=== PATIENT | male | born 1965 | race Two or more races ===

== ENCOUNTER 2020-11-24 09:05 | Inpatient (IN) | payer MEDICAID, OTHER ==
[~2020-11-24] VITALS: Ht 170.2 cm; Wt 86.8 kg
[2020-11-24] MEDS ORDERED: HYDROcodone-ACET 5/325MG TAB PO ONE (12:15)
[2020-11-24] MEDS ORDERED: cefTRIAXone SOD 1,000 MG VL IM ONE (14:00)
[2020-11-24 14:11] LABS: Basophils # (auto) 0.1 10 ^3/uL (0-0.2); Basophils % (auto) 0.4 % (0.0-2.0); Eosinophils # (auto) 0 10 ^3/uL (0-0.8); Eosinophils % (auto) 0.2 % (0.0-7.0); Hematocrit 42.2 % (41.0-53.0); Hemoglobin 14.9 g/dL (13.5-17.5); Lymphocytes % (auto) 6.4 % (10.0-50.0); Mean Corpuscular Hemoglobin 30.9 pg (28.0-32.0); Mean Corpuscular Hgb Conc. 35.4 g/dL (32.0-36.0); Mean Corpuscular Volume 87.4 fL (80.0-100.0); Monocytes # (auto) 0.8 10 ^3/uL (0-1.3); Monocytes % (auto) 5.3 % (0.0-12.0); Neutrophils # (auto) 13.5 10 ^3/uL (1.6-8.6); Neutrophils % (auto) 87.7 % (37.0-80.0); Nucleated Red Blood Cells % 0.1 %; Platelet Count (auto) 368 10^3/uL (140-450); Red Blood Cells 4.82 10^6/uL (4.5-5.90); Red Cell Distribution Width 12.6 % (11.8-14.3); White Blood Cell 15.4 10^3/uL (4.4-10.8)
[2020-11-24 14:29] LABS: Albumin 2.8 g/dL (3.4-5.0); BUN/Creatinine Ratio 21.8; Calcium 9.3 mg/dL (8.5-10.1); Potassium 4.5 mmol/L (3.5-5.1)
[2020-11-24] MEDS ORDERED: CLINDAMYCIN 300MG IV 50 ML IV ONE (14:30)
[2020-11-24] MEDS ORDERED: cefTRIAXone 1GM/50ML D5W 50 ML IV ONE (14:30)
[2020-11-24 14:32] LABS: Bilirubin, Total 0.6 mg/dL (0.2-1.0); Total Protein 8.3 g/dL (6.4-8.2)
[2020-11-24] MEDS ORDERED: SODIUM CHLORIDE 0.9% 1,000 ML IV ONE (14:45)
[2020-11-24] MEDS ORDERED: ACETAMINOPHEN 500 MG TAB PO PRN (15:15)
[2020-11-24] MEDS ORDERED: MORPHINE SULF INJ 2 MG/ML SYRINGE 1ML IV PRN (15:15)
[2020-11-24] MEDS ORDERED: DOCUSATE SOD 100 MG CAP PO PRN (15:15)
[2020-11-24] MEDS ORDERED: ONDANSETRON HCL 4 MG/2 ML VIAL IV PRN (15:15)
[2020-11-24] MEDS ORDERED: DEXTROSE (50%) 50ML SYRG IV PRN (15:15)
[2020-11-24] MEDS ORDERED: NITROGLYCERIN 0.4 MG SL TAB SL PRN (15:15)
[2020-11-24] MEDS: SODIUM CHLORIDE 0.9% 1,000 ML IV SCH (15:35)
[2020-11-24] MEDS: HYDROcodone-ACET 5/325MG TAB PO PRN ×2 (16:16→23:24)
[2020-11-24] MEDS: ACCU-CHEK COMFORT CURVE STRIP VI SCH ×2 (17:33→21:45)
[2020-11-24] MEDS: InsuLIN REG 1unit/0.01ml Soln (100units/ml) SC SCH ×2 (17:34→22:14)
[2020-11-24 21:00] VITALS: BP 138/97
[2020-11-24] MEDS: MORPHINE SULF INJ 2 MG/ML SYRINGE 1ML IV PRN (21:45)
[2020-11-24] MEDS: CLINDAMYCIN 300MG IV 50 ML IV SCH (21:46)
[2020-11-24 22:00] VITALS: BP 138/97
[2020-11-25] MEDS ORDERED: KETOROLAC TROMETH 30 MG/ML 1ML VIAL IV ONE (00:45)
[2020-11-25] MEDS ORDERED: PEN250T PO (00:53)
[2020-11-25] MEDS: SODIUM CHLORIDE 0.9% 1,000 ML IV SCH (04:37)
[2020-11-25 05:17] VITALS: BP 155/91
[2020-11-25] MEDS: ACCU-CHEK COMFORT CURVE STRIP VI SCH ×3 (06:19→17:50)
[2020-11-25] MEDS: CLINDAMYCIN 300MG IV 50 ML IV SCH ×3 (06:19→22:23)
[2020-11-25 06:32] LABS: Calcium 8.2 mg/dL (8.5-10.1); Potassium 3.7 mmol/L (3.5-5.1)
[2020-11-25] MEDS: InsuLIN REG 1unit/0.01ml Soln (100units/ml) SC SCH ×3 (06:32→17:49)
[2020-11-25 06:38] LABS: Basophils # (auto) 0 10 ^3/uL (0-0.2); Basophils % (auto) 0.4 % (0.0-2.0); Eosinophils # (auto) 0 10 ^3/uL (0-0.8); Eosinophils % (auto) 0.1 % (0.0-7.0); Hematocrit 37.6 % (41.0-53.0); Hemoglobin 13.4 g/dL (13.5-17.5); Lymphocytes % (auto) 7.7 % (10.0-50.0); Mean Corpuscular Hemoglobin 30.8 pg (28.0-32.0); Mean Corpuscular Hgb Conc. 35.5 g/dL (32.0-36.0); Mean Corpuscular Volume 86.6 fL (80.0-100.0); Monocytes # (auto) 0.8 10 ^3/uL (0-1.3); Monocytes % (auto) 6.4 % (0.0-12.0); Neutrophils # (auto) 11.2 10 ^3/uL (1.6-8.6); Neutrophils % (auto) 85.4 % (37.0-80.0); Nucleated Red Blood Cells % 0.1 %; Platelet Count (auto) 329 10^3/uL (140-450); Red Blood Cells 4.34 10^6/uL (4.5-5.90); Red Cell Distribution Width 12.3 % (11.8-14.3); White Blood Cell 13.1 10^3/uL (4.4-10.8)
[2020-11-25 08:00] VITALS: BP 137/91
[2020-11-25 08:43] VITALS: BP 137/91
[2020-11-25] MEDS: cefTRIAXone 1GM/50ML D5W 50 ML IV SCH (09:02)
[2020-11-25] MEDS: MORPHINE SULF INJ 2 MG/ML SYRINGE 1ML IV PRN ×2 (09:02→14:30)
[2020-11-25] MEDS: FLORASTOR (S. BOULARDII) 250 MG CAP PO SCH (09:07)
[2020-11-25] MEDS ORDERED: FAMOTIDINE 20 MG TAB PO SCH (10:00)
[2020-11-25 13:15] VITALS: BP 139/92
[2020-11-25] MEDS ORDERED: DEXTROSE (50%) 50ML SYRG IV PRN (14:15)
[2020-11-25] MEDS ORDERED: INSULIN LANTUS (GLARGINE) 1 /0.01ml (100units/ml) SC ONE (14:15)
[2020-11-25 17:27] LABS: Urine Bacteria NONE SEEN /hpf (None Seen); Urine Blood Negative /uL (Negative); Urine Mucus FEW (None Seen); Urine Specific Gravity 1.025 (1.001-1.035); Urine WBC 4 /hpf (0 - 3)
[2020-11-25] MEDS: HYDROcodone-ACET 5/325MG TAB PO PRN (17:42)
[2020-11-25 18:00] LABS: Alcohol, Urine < 3.0 mg/dL (0-10); Amphetamine Screen, Urine POSITIVE (NEGATIVE); Barbiturate Scree,Urine NEGATIVE (NEGATIVE); Benzodiazephine Screen, Urine NEGATIVE (NEGATIVE); Cannabinoid Screen, Urine NEGATIVE (NEGATIVE); Cocaine Screen, Urine NEGATIVE (NEGATIVE); Phencyclidine Screen, Urine NEGATIVE (NEGATIVE)
[2020-11-25 18:44] LABS: Opiate Scree,Urine POSITIVE (NEGATIVE)
[2020-11-25 22:00] VITALS: BP 120/83
[2020-11-25] MEDS: INSULIN LANTUS (GLARGINE) 1 /0.01ml (100units/ml) SC SCH (22:31)
[2020-11-26] VITALS (7 sets, daily range): BP systolic 119–137; BP diastolic 61–89
[2020-11-26] MEDS: ACCU-CHEK COMFORT CURVE STRIP VI SCH ×4 (00:11→17:05)
[2020-11-26] MEDS: InsuLIN REG 1unit/0.01ml Soln (100units/ml) SC SCH ×4 (00:16→17:32)
[2020-11-26] MEDS: CLINDAMYCIN 300MG IV 50 ML IV SCH ×3 (06:08→22:32)
[2020-11-26] MEDS: FLORASTOR (S. BOULARDII) 250 MG CAP PO SCH (09:19)
[2020-11-26] MEDS: cefTRIAXone 1GM/50ML D5W 50 ML IV SCH (09:19)
[2020-11-26] MEDS: INSULIN LANTUS (GLARGINE) 1 /0.01ml (100units/ml) SC SCH ×2 (09:26→22:39)
[2020-11-26] MEDS: HYDROcodone-ACET 5/325MG TAB PO PRN (20:47)
[2020-11-27] VITALS (7 sets, daily range): BP systolic 113–142; BP diastolic 75–95
[2020-11-27] MEDS: ACCU-CHEK COMFORT CURVE STRIP VI SCH ×4 (06:28→17:09)
[2020-11-27] MEDS: CLINDAMYCIN 300MG IV 50 ML IV SCH ×3 (06:29→21:55)
[2020-11-27] MEDS: InsuLIN REG 1unit/0.01ml Soln (100units/ml) SC SCH ×4 (06:29→17:09)
[2020-11-27] MEDS: cefTRIAXone 1GM/50ML D5W 50 ML IV SCH (09:40)
[2020-11-27] MEDS: INSULIN LANTUS (GLARGINE) 1 /0.01ml (100units/ml) SC SCH ×2 (09:48→22:01)
[2020-11-28] VITALS (7 sets, daily range): BP systolic 108–136; BP diastolic 70–87
[2020-11-28] MEDS: HYDROcodone-ACET 5/325MG TAB PO PRN (00:15)
[2020-11-28] MEDS: ACCU-CHEK COMFORT CURVE STRIP VI SCH ×5 (00:22→23:06)
[2020-11-28] MEDS: InsuLIN REG 1unit/0.01ml Soln (100units/ml) SC SCH ×5 (00:27→23:05)
[2020-11-28 05:52] LABS: Basophils # (auto) 0.1 10 ^3/uL (0-0.2); Basophils % (auto) 0.5 % (0.0-2.0); Eosinophils # (auto) 0.1 10 ^3/uL (0-0.8); Eosinophils % (auto) 0.7 % (0.0-7.0); Hematocrit 39.2 % (41.0-53.0); Hemoglobin 14.2 g/dL (13.5-17.5); Lymphocytes # (auto) 2.8 10 ^3/uL (0.4-5.4); Lymphocytes % (auto) 25.7 % (10.0-50.0); Mean Corpuscular Hemoglobin 31.5 pg (28.0-32.0); Mean Corpuscular Hgb Conc. 36.4 g/dL (32.0-36.0); Mean Corpuscular Volume 86.6 fL (80.0-100.0); Monocytes # (auto) 0.8 10 ^3/uL (0-1.3); Monocytes % (auto) 7.6 % (0.0-12.0); Neutrophils # (auto) 7.2 10 ^3/uL (1.6-8.6); Neutrophils % (auto) 65.5 % (37.0-80.0); Nucleated Red Blood Cells % 0.1 %; Platelet Count (auto) 428 10^3/uL (140-450); Red Blood Cells 4.52 10^6/uL (4.5-5.90); Red Cell Distribution Width 12.5 % (11.8-14.3)
[2020-11-28] MEDS: CLINDAMYCIN 300MG IV 50 ML IV SCH ×3 (05:54→22:58)
[2020-11-28] MEDS: cefTRIAXone 1GM/50ML D5W 50 ML IV SCH (09:33)
[2020-11-28] MEDS: INSULIN LANTUS (GLARGINE) 1 /0.01ml (100units/ml) SC SCH ×2 (09:34→23:06)
[2020-11-29 05:00] VITALS: BP 118/84
[2020-11-29] MEDS: InsuLIN REG 1unit/0.01ml Soln (100units/ml) SC SCH ×2 (05:38→11:42)
[2020-11-29] MEDS: CLINDAMYCIN 300MG IV 50 ML IV SCH ×2 (05:38→14:08)
[2020-11-29] MEDS: ACCU-CHEK COMFORT CURVE STRIP VI SCH ×2 (05:38→11:40)
[2020-11-29 09:00] VITALS: BP 125/80
[2020-11-29] MEDS ORDERED: METF-370 PO (10:04)
[2020-11-29] MEDS ORDERED: CLIN300C8 PO (10:04)
[2020-11-29] MEDS ORDERED: INSLANTI SC (10:04)
[2020-11-29] MEDS: cefTRIAXone 1GM/50ML D5W 50 ML IV SCH (11:02)
[2020-11-29] MEDS: INSULIN LANTUS (GLARGINE) 1 /0.01ml (100units/ml) SC SCH (11:06)
== END 2020-11-29 15:57 | disposition home or self-care (01) | DRG 720 ==
LOC: ER 09:05 → OVERFLOW 15:02 → WEST WING 21:10
PROVIDERS: ADMIT Nurse Practitioner Acute Care; ATTEND Internal Medicine
DX: A41.9 Sepsis, unspecified organism (principal); E43 Unspecified severe protein-calorie malnutrition; E11.65 Type 2 diabetes mellitus with hyperglycemia; Z20.822 Contact with and (suspected) exposure to COVID-19; L03.116 Cellulitis of left lower limb; E66.9 Obesity, unspecified; F15.10 Other stimulant abuse, uncomplicated; B95.62 Methicillin resistant Staphylococcus aureus infection as the cause of diseases classified elsewhere; E87.1 Hypo-osmolality and hyponatremia; Z79.84 Long term (current) use of oral hypoglycemic drugs; Z91.19 Patient's noncompliance with other medical treatment and regimen; Z79.899 Other long term (current) drug therapy; Z68.30 Body mass index [BMI] 30.0-30.9, adult
CPT/HCPCS: 36415; 73700; 80048; 80053; 80307; 81001; 82962; 83036; 83605; 85025; 85652; 87077; 87186; 87205; 87426; 93971; 96365; 96368; G0378; J0696; J1815; J1885; J3490